=== PATIENT | male | born 1990 | race Two or more races ===

== ENCOUNTER 2023-01-22 15:02 | Emergency (ER) | payer OTHER ==
[~2023-01-22] VITALS: Ht 167.6 cm; Wt 79.4 kg
[2023-01-22 15:17] VITALS: BP 137/89; TEMP 98.1; O2SAT 99
[2023-01-22] MEDS ORDERED: PSEU-310 PO (15:40)
[2023-01-22] MEDS ORDERED: FLUT16SP BNOSTRILS (15:40)
== END 2023-01-22 15:45 | disposition home or self-care (01) ==
LOC: ER 15:08
DX: R09.81 Nasal congestion (principal); Z90.49 Acquired absence of other specified parts of digestive tract